=== PATIENT | female | born 1965 | race Caucasian/White ===

== ENCOUNTER 2016-04-02 22:11 | Emergency (ER) | payer MEDICAID ==
[2015-08-18 09:51] VITALS: BMI 34.4
[~2016-04-02 22:11] MED LIST: ABILIFY10 MG; AMBIEN10 MG; AMBIEN5 MG PO; ARTHROTEC EC 71 EACH; ATARAX 25 MG TA25 MG; CELEXA20 MG; CIPRO500 MG; CYMBALTA60 MG; FLAGYL500 MG; LOMOTIL TABLET1 TAB PO; TORADOL10 MG; XANAX1 MG; ZOFRAN4 MG PO
[2016-04-02 22:51] LABS: APPEARANCE CLOUDY (CLEAR); BILIRUBIN NEGATIVE (NEGATIVE); COLOR YELLOW (YELLOW); GLUCOSE NEGATIVE (NEGATIVE); KETONE NEGATIVE (NEGATIVE); LEUKOCYTE ESTERASE 2+ (NEGATIVE); NITRITE POSITIVE (NEGATIVE); PROTEIN TRACE mg/dL (NEGATIVE); UROBILINOGEN NORMAL (NORMAL)
[2016-04-02 22:53] LABS: BACTERIA MANY /hpf (NONE SEEN); EPITHELIAL CELLS 0-5 /hpf (0-5); RED CELLS - URINE 0-5 /hpf (0-5)
[2016-04-02 23:28] LABS: BASOPHILS 0.3 % (0.0-2.0); EOSINOPHILS 2.8 % (0-7); HEMOGLOBIN 12.8 g/dL (12-16); IMMATURE GRANULOCYTES 0.3 % (0-5); LYMPHOCYTES 22.5 % (15-50); MCH 28.3 pg (26.0-34.0); MCHC 32.8 g/dL (31.0-37.0); MCV 86.1 fL (80.0-100.0); MEAN PLATELET VOLUME 10.3 fL (7.4-10.4); MONOCYTES 10.4 % (2-11); NEUTROPHILS 63.7 % (40-80); PLATELET COUNT 165 10x3/uL (130-400); RBC 4.53 10x6/uL (4.00-5.40); RDW 14.3 % (11.5-14.5); WBC 7.5 10x3/uL (4.8-10.8)
[2016-04-02 23:40] LABS: CALC OSMOLALITY 281 mosm/kg (275-300); CALCIUM 8.8 mg/dL (8.5-10.1); CARBON DIOXIDE 28.1 mmol/L (21.0-32.0); CHLORIDE - SERUM 104 mmol/L (98-107); CREATININE - SERUM 0.6 mg/dL (0.6-1.3); GLUCOSE 135 mg/dL (74-106); POTASSIUM - SERUM 3.4 mmol/L (3.5-5.1); SODIUM 141 mmol/L (136-145); UREA NITROGEN 11 mg/dL (7-18); eGFR NON AFRICAN AMERICAN > 90 mL/min (90-120)
== END 2016-04-03 00:50 | disposition home or self-care (01) ==
LOC: D.ER 22:11
PROVIDERS: Family Medicine
DX: N39.0 Urinary tract infection, site not specified (principal); F41.9 Anxiety disorder, unspecified; F32.9 Major depressive disorder, single episode, unspecified; B19.20 Unspecified viral hepatitis C without hepatic coma; F14.10 Cocaine abuse, uncomplicated; F12.10 Cannabis abuse, uncomplicated; F15.10 Other stimulant abuse, uncomplicated

== ENCOUNTER → 2018-11-14 13:56 | Outpatient (CLI) | payer BC ==
[2015-08-18 09:51] VITALS: BMI 34.4
--- NOTE | 2018-11-16 08:45 | EC ---
PATIENT:KENDALL US DATE OF SERVICE: 11/14/18 SEX: F MEDICAL RECORD: [id number] DATE OF : [birth year] LOCATION:D[facility] AGE OF PATIENT: 53 ADMISSION DATE: 11/14/18 REFERRING PHYSICIAN: INTERPRETING PHYSICIAN: MISHEL GREEN MD ECHOCARDIOGRAM REPORT ECHO CHARGES 4 ECHO COMPLETE Date: 11/14/18 CLINICAL DIAGNOSIS: HTN/DYSPNEA ECHOCARDIOGRAPHIC MEASUREMENTS (adult normal given) AC root (d.<3.7cm) 3.3 cm LV Septum d (<1.2 cm> 1.5 cm Valve Excursion 1.4 cm LV Septum (systole) 1.7 cm Left Atria (s.<4.0cm> 3.7 cm LVPW d(<1.2cm) 1.4 cm RV (d.<2.3cm) 3.3 cm LVPW (sytole) 1.5 cm LV diastole(<5.6CM) 4.7 cm MV E-F(>70mm/sec) cm LV systole 3.2 cm LVOT Diameter 1.8 cm MV exc.(>10mm) 1.3 cm Est.ejection fraction (50-75%) % DOPPLER: LVIT cm/sec A 117 cm/sec E 90.0 cm/sec LA cm/sec RVSP 19 mmHg LVOT 111 cm/sec AOP1/2T m/s Asc. Ao 148 cm/sec RVOT 92 cm/sec RA cm/sec PA 113 cm/sec AV Gradient Peak 8.79 mmHg AV Mean 4.63 mmHg AV Area 2.0 cm MV Gradient Peak 6.64 mmHg MV Mean 2.52 mmHg MV Area cm COMMENTS: Logistic Specialist: 2 TRACI VILLEGAS Supervisor Adult Education: 3 Dr. Bang TAPE# PACS Pericardial Effusion N DATE OF SERVICE: 11/14/2018 Adequate 2D, color flow imaging, spectral Doppler, and M-Mode LVH is present. LV internal dimension is normal. Wall motion is normal. EF is greater than or equal to 55%. Aortic valve is tricuspid. No evidence of stenosis by Doppler interrogation. Left atrium normal at 3.7 cm. Mitral valve shows no prolapse. Trace MR. Right-sided chambers are grossly normal. Mild TR. ECHOCARDIOGRAM REPORT [id number] KENDALL US TRANSINT:[id number] Voice Confirmation ID: [id number] DOCUMENT ID: [id number] MISHEL GREEN MD at 0845 CC: [id number] DICTATION DATE: 11/15/18 1400 CEMENTER MACHINE: 11/15/18 1543 DEP CLI 11/14/18 [place] [id number] [place] [id number]
== END | disposition home or self-care (01) ==
LOC: D.HCCECHO 13:56 → D.HCCARDIO 14:00 → D.HCCECHO 14:00
PROVIDERS: ATTEND Internal Medicine Interventional Cardiology
DX: I10 Essential (primary) hypertension (principal)